=== PATIENT | male | born 1995 | race Two or more races ===

== ENCOUNTER 2023-04-02 04:11 | Emergency (ER) | payer OTHER ==
[~2023-04-02] VITALS: Ht 180.3 cm; Wt 83.9 kg
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
[2023-04-02] MEDS ORDERED: ACETAMINOPHEN ES 500 MG TABLET ONE (04:52)
[2023-04-02] MEDS ORDERED: IBUPROFEN 400 MG TABLET ONE (04:52)
[2023-04-02] MEDS ORDERED: IBUPROFEN 400 MG TABLET PO ONE (05:00)
[2023-04-02] MEDS ORDERED: ACETAMINOPHEN ES 500 MG TABLET PO ONE (05:00)
--- NOTE | 2023-04-02 05:00 | NUR ---
XR AT BEDSIDE
[2023-04-02 05:47] VITALS: BP 129/85; TEMP 98.9
--- NOTE | 2023-04-02 05:53 | NUR ---
Patient discharged to home in stable condition. Written and verbal after care instructions given. Patient verbalizes understanding of instruction.
== END 2023-04-02 05:53 | disposition home or self-care (01) ==
LOC: ER 04:14
DX: S80.212A Abrasion, left knee, initial encounter (principal); M25.552 Pain in left hip; Z88.0 Allergy status to penicillin; V09.9XXA Pedestrian injured in unspecified transport accident, initial encounter; Y93.89 Activity, other specified; Y92.488 Other paved roadways as the place of occurrence of the external cause; Y99.8 Other external cause status
CPT/HCPCS: 71100-TC; 73502; 73564-TC